=== PATIENT | female | born 1935 | race Two or more races ===

== ENCOUNTER 2023-02-23 14:50 | Outpatient (CLI) | payer OTHER ==
[~2023-02-23 14:50] MED LIST: ADVAIR 2501 DISK W/1 IH; LEVOTHYROXINE; LEXAPRO5 MG PO; NORVASC; SINGULAIR10 MG PO
== END 2023-02-23 14:57 | disposition home or self-care (01) ==
LOC: RAD 14:50
PROVIDERS: ATTEND General Practice
DX: R07.89 Other chest pain (principal); I20.8 Other forms of angina pectoris

== ENCOUNTER 2023-03-09 10:04 | Outpatient (CLI) | payer OTHER | END 2023-03-09 10:13 | disposition home or self-care (01) | LOC: TOM 10:04 | PROVIDERS: ATTEND Internal Medicine Gastroenterology | DX: R10.13 Epigastric pain (principal); R10.33 Periumbilical pain ==

== ENCOUNTER 2023-11-02 10:23 | Emergency (ER) | payer OTHER ==
[~2023-11-02] VITALS: Ht 157.5 cm; Wt 77.1 kg
[2023-11-02] MEDS ORDERED: VALSARTAN40 MG (10:28)
[2023-11-02] MEDS ORDERED: GUAIFENESIN 200 MG/10 ML BLIST.PACK PO STA (10:55)
[2023-11-02] MEDS ORDERED: IPRATROPIUM BROMIDE 0.5 MG/2.5 ML AMPUL.NEB IH SCH (11:00)
[2023-11-02] MEDS ORDERED: BUDESONIDE 0.5 MG/2 ML AMPUL.NEB IH SCH (11:00)
[2023-11-02 11:41] LABS: HEMATOCRIT 42.9 % (36.0-45.00); MEAN CELL VOLUME 89.2 fL (80.00-100.00); MEAN CORPUSCULAR HEMOGLOBIN 31.1 pg (27.00-32.0); MEAN CORPUSCULAR HGB CONC 34.8 g/dl (32.0-36.0); PLATELET COUNT 354 K/uL (150-450); RED BLOOD COUNT 4.81 M/uL (4.00-6.00); RED CELL DISTRIBUTION WIDTH 13.9 % (11.5-14.5)
[2023-11-02 11:50] LABS: ABG PH 7.426 (7.35-7.45); ABG PO2 90.5 mmHg (80-100); SaO2 97.2 %
[2023-11-02 11:51] LABS: BASE EXCESS 0.3 mmol/l; BICARBONATE 24.4 mmol/l (23-25); Tco2 25.6 mmol/l; allen test SATISFACTORY; o2 21 %; puncture site RADIAL LEFT
[2023-11-02 12:02] LABS: CALCIUM 9.3 mg/dL (8.5-10.1); CREATININE SERUM 0.88 mg/dL (0.55-1.02); GFR 60.93; POTASSIUM 3.63 mEq/L (3.5-5.1)
[2023-11-02] MEDS ORDERED: levoFLOXacin IN DEXTROSE 5 % 5 MG/ML PIGGYBAG IV STA (12:20)
[2023-11-02] MEDS ORDERED: METHYLPREDNISOLONE SOD SUCC 125 MG VIAL IV STA (12:20)
== END 2023-11-02 14:58 | disposition home or self-care (01) ==
LOC: ER 10:24
PROVIDERS: General Practice
DX: R05.8 Other specified cough (principal); I10 Essential (primary) hypertension; Z98.890 Other specified postprocedural states; Z91.013 Allergy to seafood
CPT/HCPCS: 36415; 82803; 94640; 96365; 99285; J1956; J2920

== ENCOUNTER 2024-05-08 11:53 | Outpatient (CLI) | payer OTHER ==
[~2024-05-08 11:53] MED LIST changes: +VALSARTAN40 MG
== END 2024-05-08 11:55 | disposition home or self-care (01) ==
LOC: RAD 11:53
PROVIDERS: ATTEND Internal Medicine Rheumatology
DX: M19.041 Primary osteoarthritis, right hand (principal); M19.042 Primary osteoarthritis, left hand

== ENCOUNTER 2024-10-21 11:29 | Outpatient (CLI) | payer OTHER | END 2024-10-21 11:35 | disposition home or self-care (01) | LOC: SONOGRAMA 11:29 | PROVIDERS: ATTEND Internal Medicine | DX: E03.8 Other specified hypothyroidism (principal); N18.30 Chronic kidney disease, stage 3 unspecified ==

== ENCOUNTER 2024-11-27 15:24 | Outpatient (CLI) | payer OTHER | END 2024-11-27 15:26 | disposition home or self-care (01) | LOC: SONOGRAMA 15:24 | PROVIDERS: ATTEND Pathology Anatomic Pathology & Clinical Pathology | DX: D34 Benign neoplasm of thyroid gland (principal); E07.89 Other specified disorders of thyroid; E04.1 Nontoxic single thyroid nodule; E03.8 Other specified hypothyroidism ==

== ENCOUNTER 2025-03-18 07:47 | Outpatient (CLI) | payer OTHER | END 2025-03-18 07:50 | disposition home or self-care (01) | LOC: TOM 07:47 | PROVIDERS: ATTEND Internal Medicine Gastroenterology | DX: K57.32 Diverticulitis of large intestine without perforation or abscess without bleeding (principal); K52.3 Indeterminate colitis; R10.30 Lower abdominal pain, unspecified; K29.01 Acute gastritis with bleeding | CPT/HCPCS: 74177; Q9965 ==